=== PATIENT | male | born 1950 | race Caucasian/White ===

== ENCOUNTER 2024-12-25 10:31 | Outpatient (CLI) | payer MEDICARE, MEDICAID ==
[~2024-12-25 10:31] MED LIST: CARV-50 PO; CITA-311 PO; DIGO125T PO; LISI5TAB22 PO; RIVA20TA PO
--- NOTE | 2024-12-25 11:42 | RADIOLOGY REPORT ---
Exam: US US NON VASCULAR Date: 12/25/2024 10:59 AM Clinical History: DERMOID CYST OF NECK Comparison: None Technique: Targeted sonographic evaluation of the soft tissues of the left neck was obtained utilizing grayscale and color Doppler imaging. Findings/Impression: Complex superficial fluid collection in the region of the left neck which may represent a ruptured sebaceous cyst. Recommend dermatologic consultation.
== END 2024-12-25 23:59 | disposition home or self-care (01) ==
LOC: RAD 10:31
PROVIDERS: ATTEND Nurse Practitioner Family
DX: D36.7 Benign neoplasm of other specified sites (principal)
CPT/HCPCS: 76881